=== PATIENT | male | born 1960 | race Caucasian/White ===

== ENCOUNTER 2019-03-30 10:19 | Outpatient (REF) | payer OTHER, SELFPAY ==
[2019-03-30 19:36] LABS: Anion Gap 11.9 mmol/L (3-11); BUN 25 mg/dL (7-18); CO2 26.1 mmol/L (21.0-32.0); Chloride 102 mmol/L (98-107); Glucose 120 mg/dL (70-100); Potassium 4.3 mmol/L (3.5-5.1); Sodium 140 mmol/L (136-145)
[2019-03-30 21:17] LABS: Hemoglobin A1C 5.6 % (4.5-6.2)
== END 2019-03-30 10:39 ==
LOC: NCHCN 10:19
PROVIDERS: PCP Internal Medicine; Visit Provider Physician Assistant Medical
DX: I10 Essential (primary) hypertension (principal)
CPT/HCPCS: 80048; 83036

== ENCOUNTER 2020-07-25 09:27 | Outpatient (REF) | payer BC, SELFPAY ==
[2020-07-26 01:01] LABS: ALT 52 U/L (16-63); AST 27 U/L (15-37); Albumin 4.1 g/dL (3.4-5.0); Alkaline Phosphatase 71 U/L (46-116); Anion Gap 12.4 mmol/L (3-11); BUN 19 mg/dL (7-18); Bilirubin, Total 0.8 mg/dL (0.2-1.0); CO2 25.6 mmol/L (21.0-32.0); CREATININE 0.66 mg/dL (0.70-1.30); Calculated LDL 111 mg/dL (<100); Chloride 105 mmol/L (98-107); Cholesterol 182 mg/dL (<200); Glucose 108 mg/dL (74-106); HDL Cholesterol 55 mg/dL (40-60); Potassium 4.2 mmol/L (3.5-5.1); Sodium 143 mmol/L (136-145); Total Protein 7.1 g/dL (6.4-8.2); Triglyceride 84 mg/dL (<150)
[2020-07-26 17:32] LABS: PSA, Screening 1.2 ng/mL (0.0-4.5)
== END 2020-07-25 09:47 ==
LOC: NCHCN 09:27
PROVIDERS: PCP Internal Medicine; Visit Provider Physician Assistant
DX: I10 Essential (primary) hypertension (principal); E78.5 Hyperlipidemia, unspecified; Z12.5 Encounter for screening for malignant neoplasm of prostate
CPT/HCPCS: 80053; 80061; 84153

== ENCOUNTER 2022-01-15 15:25 | Outpatient (REF) | payer BC, SELFPAY ==
[2022-01-15 20:23] LABS: Anion Gap 9.3 mmol/L (3-11); BUN 23 mg/dL (7-18); CO2 26.7 mmol/L (21.0-32.0); CREATININE 0.6 mg/dL (0.70-1.30); Calcium 9.2 mg/dL (8.5-10.1); Calculated LDL 112 mg/dL (<100); Chloride 101 mmol/L (98-107); Cholesterol 212 mg/dL (<200); Glucose 108 mg/dL (74-106); HDL Cholesterol 82 mg/dL (40-60); Potassium 4.3 mmol/L (3.5-5.1); Sodium 137 mmol/L (136-145); Triglyceride 91 mg/dL (<150)
== END 2022-01-15 15:26 | disposition home or self-care (01) ==
LOC: NCHCN 15:25
PROVIDERS: PCP Internal Medicine; Visit Provider Physician Assistant
DX: E78.5 Hyperlipidemia, unspecified (principal); I10 Essential (primary) hypertension
CPT/HCPCS: 80048; 80061

== ENCOUNTER 2023-01-21 12:46 | Outpatient (REF) | payer BC, SELFPAY ==
[2023-01-21 18:53] LABS: ALT 58 U/L (16-63); AST 27 U/L (15-37); Alkaline Phosphatase 64 U/L (46-116); Anion Gap 7.8 mmol/L (3-11); BUN 24 mg/dL (7-18); Bilirubin, Total 0.6 mg/dL (0.2-1.0); CO2 27.2 mmol/L (21.0-32.0); CREATININE 0.7 mg/dL (0.70-1.30); Calcium 9.2 mg/dL (8.5-10.1); Calculated LDL 100 mg/dL (<100); Chloride 104 mmol/L (98-107); Cholesterol 180 mg/dL (<200); Estimated GFR 102.89 (mL/min/1.73m2); Glucose 111 mg/dL (74-106); HDL Cholesterol 71 mg/dL (40-60); Potassium 4.2 mmol/L (3.5-5.1); Sodium 139 mmol/L (136-145); Total Protein 7.6 g/dL (6.4-8.2); Triglyceride 47 mg/dL (<150)
[2023-01-23 01:32] LABS: PSA, Screening 1.4 ng/mL (<=4.5)
== END 2023-01-21 12:47 | disposition home or self-care (01) ==
LOC: NCHCN 12:46
PROVIDERS: PCP Internal Medicine; Visit Provider Physician Assistant
DX: N40.0 Benign prostatic hyperplasia without lower urinary tract symptoms (principal); I10 Essential (primary) hypertension; E78.5 Hyperlipidemia, unspecified; R73.03 Prediabetes
CPT/HCPCS: 80053; 80061; 84153

== ENCOUNTER 2024-03-15 07:26 | Observation (INO) | payer BC, SELFPAY ==
[2024-03-15] VITALS (35 sets, daily range): BP systolic 88–172; BP diastolic 48–95; PULSE 62–114; RESP 9–22; TEMP 35.9–36.9; O2SAT 94–98; BMI 33.0
--- NOTE | 2024-03-15 07:44 | W.PM.HP.N ---
Date of service: 03/15/24 Time of Service: 07:45 Assessment and Plan Assessment and plan (1) Lower urinary tract symptoms (LUTS): Status: Acute Assessment and plan: He has failed maximal medical management so we will move ahead with surgical management. History of Present Illness History of Present Illness Chief Complaint: Lower urinary tract symptoms Narrative: This is a 63-year-old gentleman who has a long history of lower urinary tract symptoms including slowing of his urinary stream and double voiding. He has failed maximal medical therapy. He presents for transurethral resection of the prostate. He has never had complete urinary retention requiring a Callahan catheter. He has no prior history of urinary tract infections. He has no history of bleeding disorders or wound healing issues. Review of Systems Narrative: No fevers or chills No vision change or dysphasia No diabetes or thyroid No shortness of breath, cough or hemoptysis No chest pain or palpitations No nausea, vomiting, hepatitis, ulcers, jaundice, diarrhea or constipation No seizures, strokes or peripheral neuropathy No bleeding disorders or anemia No gout PFSH All Active Problems (Updated 03/15/24 @ 07:47 by Sukhdev Sheth MD) Lower urinary tract symptoms (LUTS) (Acute) BPH (benign prostatic hyperplasia) (Chronic) Hyperlipidemia (Acute) Hypertension (Chronic) Obesity (Chronic) Erectile dysfunction (Acute) History of alcohol abuse (Acute) Eczema (Acute) Cervical radiculopathy (Acute) Colonic polyp (Acute) Prediabetes (Acute) Social History Smoking/Tobacco Use Status: Former Tobacco Use Quit Date: 10/13/83 Smoking risk assessment performed?: Yes Alcohol Intake: current Alcohol Intake frequency: a few times a week Alcohol type: hard liquor Drug use: Never Substance use type: does not use Housing: house Additional Social history: [facility] Meds Allergies and Home Medications Allergies Allergy/AdvReac Type Severity Reaction Status Date / Time No Known Allergies Allergy Verified 03/15/24 07:55 Home Medications Medication Instructions Recorded Confirmed Type ibuprofen 800 mg tablet 800 mg PO Q8H 01/07/23 03/12/24 History lisinopril 40 mg tablet 40 mg PO DAILY 01/07/23 03/15/24 History tamsulosin 0.4 mg capsule 0.8 mg PO QHS 01/07/23 03/15/24 History atorvastatin 40 mg tablet 40 mg PO DAILY 06/10/23 03/15/24 History terazosin 1 mg capsule 2 mg PO DAILY 06/10/23 03/15/24 History finasteride 5 mg tablet 5 mg PO DAILY #90 tabs 06/11/23 03/15/24 Rx melatonin 10 mg capsule 40 mg PO HS PRN 03/15/24 03/15/24 History Exam Const General: cooperative Neck Neck: supple Resp Effort & Inspection: normal respiratory effort Auscultation: clear to auscultation bilaterally Cardio Rate: regular rate Rhythm: regular rhythm GI Inspection: obesity Palpation: soft Neuro General: patient alert, patient awake and patient oriented x3 Time Spent Time spent with Patient: <40 minutes Time was spent: other
[2024-03-15] MEDS: Lactated Ringers 1,000 ML 80 ML IV ×2 (07:52→11:20)
--- NOTE | 2024-03-15 08:17 | W.ANESPRE ---
General Info Date of Service Date Performed: 03/15/24 Height: 6 ft Weight: 110.4 kg Body Mass Index (BMI): 33.0 Surgical Procedure: Operation Date: 03/15/24 08:40 Proposed Procedure Side Surgeon p Cysto/Transurethral Resection Prostate/Vaporization of Prostate Sukhdev Sheth MD Meds Allergies and Home Medications Allergies Allergy/AdvReac Type Severity Reaction Status Date / Time No Known Allergies Allergy Verified 03/15/24 07:55 Home Medication Medication Instructions Recorded ibuprofen 800 mg tablet 800 mg PO Q8H 01/07/23 lisinopril 40 mg tablet 40 mg PO DAILY 01/07/23 tamsulosin 0.4 mg capsule 0.8 mg PO QHS 01/07/23 atorvastatin 40 mg tablet 40 mg PO DAILY 06/10/23 terazosin 1 mg capsule 2 mg PO DAILY 06/10/23 finasteride 5 mg tablet 5 mg PO DAILY #90 tabs 06/11/23 melatonin 10 mg capsule 40 mg PO HS PRN 03/15/24 Current Visit Medications: Current Medications Generic Name Dose Route Start Last Admin Trade Name Freq PRN Reason Stop Dose Admin Ringer's Solution 1,000 mls @ 80 mls/hr 03/15/24 06:00 03/15/24 07:52 IV 03/15/24 23:59 80 mls/hr INFUSION SUZE Administration Cefazolin Sodium/Dextrose 2 gm in 50 mls @ 100 mls/hr 03/15/24 06:00 Ancef Duplex IVPB 03/15/24 23:59 PREOP SUZE IV Miscellaneous Supplies 1 each 03/15/24 06:00 Iv Access IV 03/15/24 23:59 DIRECTED SUZE Sodium Chloride 0 ml 03/15/24 06:00 Normal Saline Flush 10 Ml Syr IV 03/15/24 23:59 PRN PRN Sodium Chloride 0 ml 03/15/24 06:00 Normal Saline 10 Ml Vial IJ 03/15/24 23:59 DIRECTED PRN Sterile Water 0 ml 03/15/24 06:00 Water,Injection,Sterile 10 Ml Vial IJ 03/15/24 23:59 DIRECTED PRN PFSH Active Problems Active Problems: Problem Status Onset Code Lower urinary tract symptoms (LUTS) R39.9 BPH (benign prostatic hyperplasia) N40.0 Hyperlipidemia E78.5 Hypertension I10 Obesity E66.9 Erectile dysfunction N52.9 History of alcohol abuse F10.11 Eczema L30.9 Cervical radiculopathy M54.12 Colonic polyp K63.5 Prediabetes R73.03 Tobacco Smoking/Tobacco Use Status: Former Tobacco Use Alcohol Alcohol Intake: current Alcohol intake frequency: a few times a week Alcohol type: hard liquor Substance Use Substance use: Never Substance use type: does not use Vital Signs and Lab Results Vital Signs Most Recent Vital Signs in EMR: Most Recent Vital Signs Temp Pulse Resp BP Pulse Ox 36.6 C 97 H 20 172/82 H 98 03/15/24 08:07 03/15/24 08:07 03/15/24 08:07 03/15/24 08:07 03/15/24 08:07 Lab Results Blood Type / Crossmatch: No Data to Display Complete Blood Count: No Data to Display Complete Metabolic Panel: No Data to Display Liver Function Panel: No Data to Display Coagulation Panel: No Data to Display Cardiac Panel: No Data to Display Arterial Blood Gas: No Data to Display Venous Blood Gas: No Data to Display Pancreas Panel: No Data to Display Thyroid Panel: No Data to Display Infectious Disease: No Data to Display Blood Cultures: No Data to Display Toxicology Panel: No Data to Display Anesthesia Assessment and Plan Anesthesia History Personal History: No History of General Anesthesia Family History: No Family History of Anesthesia Complications Exercise Tolerance Exercise Tolerance: Metabolic Equivalents>4 Pertinent Negatives Pertinent Negatives: No Major Pulmonary Symptoms or Complaints Cardiac & Pulmonary Exam Cardiac Exam: Normal S1/S2 Heart Sounds Pulmonary Exam: Clear Bilateral Breath Sounds Implantable Cardiac Device Does patient have a Pacemaker or an ICD?: No Airway Exam Known Difficult Airway: No Mallampati Class: 3 Mouth Opening: Normal (> 3cm) Thyromental Distance: Greater than 3 cm Neck Range of Motion: Full ROM Neck Circumference: Normal Teeth Condition: Normal Dentition ASA Classification ASA Score: ASA 2 Emergency Case?: No NPO Status NPO Status: NPO Clears >2 hours, Solids >8 hours Anesthesia Plan Resuscitation Status: Full Code Anesthesia Technique: General Anesthesia Airway Planned: Endotracheal Tube Monitors Used: Standard Monitors
[2024-03-15] MEDS: ceFAZolin 2 GM/50 ML BAG IVPB (09:16)
[2024-03-15] MEDS: Lidocaine 2% Jelly 11 ML SYR (09:28)
--- NOTE | 2024-03-15 10:11 | PROST_PTH ---
PATIENT: Jordy Lund LOC: U#:[id number] AGE/SX: 63/M ROOM: 215 RE03/15/[address]: Sukhdev Sheth MD : 1960 BED: A DIS: 03/16/2024 SPEC #: [id number] RECD: 03/15/24 13:02 STATUS: RANDOLPH REQ #: [id number] PONCHO: 03/15/24 10:[address]: Sukhdev Sheth DEPT: Surgical Specimen RECD BY: Jenna Chung ENTERED: 03/15/24 13:03 SP TYPE: PROST OTHR DR: Bhavesh Gaona Tissues: 1 - PROSTATE CURRETTINGS Procedures: GROSS AND MICRO LEVEL 4 Comments: [id number]
--- NOTE | 2024-03-15 10:29 | ROE_ITS ---
Date of service: 03/15/24 Time of Service: 10:29 Operative Note Operative Note DATE OF PROCEDURE: 03/15/24 PRE-OP DIAGNOSIS: Lower urinary tract symptoms PROCEDURE: Cystoscopy with TURP SURGEON: Sukhdev Sheth ANESTHESIA TYPE: Local By Surgeon and General LMA/ETT Refer to Anesthesia Record ESTIMATED BLOOD LOSS: 150 PATHOLOGY: other (prostate tissue) COMPLICATIONS: None Patient was transported to: PACU Patient's condition: stable Implants: 22 Fijian coude tipped irrigating catheter with 30 cc sterile water in balloon Indications: This is a 63-year-old gentleman who has a history of lower urinary tract symptoms. He has failed maximal medical therapy. He presented for transurethral resection of the prostate Findings: Trilobar prostatic enlargement with a prominent median lobe Procedure Description: The patient was given preoperative IV antibiotics and brought to the operating room on 03/15/2024. After successful induction of general anesthesia, he was placed in the dorsal lithotomy position. His genitalia was prepped with Betadine and the genitalia was draped. 2% Xylocaine jelly was then instilled into the urethra to act as a local anesthetic. A 24 Fijian resectoscope sheath was passed through the urethra into the bladder. We used a visual obturator to inspect the urethra and bladder. The pendulous, bulbar and membranous urethra appeared normal with no strictures. The prostatic urethra showed some lateral lobe enlargement but there was an elevated bladder neck and a rather prominent median lobe present. The bladder neck was entered and the bladder was inspected. The bladder was trabeculated with no papillary or nodular lesions present. Both ureteral orifices were identified. Using bipolar cautery and an netFactor resectoscope, we performed transurethral resection of the prostate. We initially took down the median lobe and followed up by resecting the lateral lobe and anterior tissue as well. All resected tissue was evacuated and sent to pathology for permanent section. The depth of the resection was down to the prostatic capsule and the resection extended out to the verumontanum. At the completion of the resection, we switched to a vaporization ball and cauterized and vaporized any remaining tissue in the prostatic fossa. At the completion of the procedure, no arterial bleeding was seen. The bladder was filled with irrigant. The resectoscope was removed. A 22 Fijian hematuria catheter was passed through the urethra into the bladder. The catheter balloon was inflated with 30 cc of sterile water. Continuous bladder irrigation with saline was then begun. The patient tolerated this procedure well with no complications. The estimated blood loss was 150 cc. He was taken to the recovery room in stable condition.
[2024-03-15] MEDS: Oxybutynin 5 MG TAB PO ×2 (10:56→17:53)
--- NOTE | 2024-03-15 10:58 | W.ANESPOSTOP ---
Postoperative Evaluation Date, Time and Location Date Performed: 03/15/24 Time Performed: 10:58 Patient Location: PACU Vital Signs Most Recent Imported Vital Signs: Most Recent Vital Signs Temp Pulse Resp BP Pulse Ox 36.4 C L 67 14 109/53 L 95 03/15/24 10:30 03/15/24 10:46 03/15/24 10:50 03/15/24 10:46 03/15/24 10:50 Pain Score Most Recent Pain Score: Most Recent Pain Score Pain Level 0 03/15/24 10:30 Assessment Mental Status: Awake (Alert & Oriented to Patient Baseline) Airway and Respiratory Function: Patent airway with normal (patient baseline) respiratory exam Cardiovascular Function: Hemodynamically Stable Hydration Status: Adequately Hydrated Nausea & Vomiting: No Nausea or Vomiting Pain: Pt. Denies Any Pain Peripheral Nerve Block: Patient did not receive a nerve block
[2024-03-15] MEDS: traMADol 50 MG TAB PO ×2 (13:20→20:07)
--- NOTE | 2024-03-15 13:49 | PHA.REVIEW2 ---
Pharmacy Admission Review Admission Clinical Review Admission Pharmacy Review: (Updated 03/15/24 @ 07:47 by Sukhdev Sheth MD) Lower urinary tract symptoms (LUTS) (Acute) No Known Allergies Allergy (Verified 03/15/24 07:55) Resuscitation Status Full Code Height 6 ft Weight 110.4 kg Pharmacy Admission Review Renal Dosing Medications needing adjustments: Reviewed (CrCl 94.5 mL/min) List of meds needing interventions: Current medications are okay Anticoagulation DVT Prophylaxis: Reviewed (SCDs) Relevant Labs Electrolytes, C-Reactive P, ESR: Reviewed Cardiac Review BP, HR, EF%: Reviewed (BP 104/55 and HR WNL) QTc Review QTc: Reviewed (No EKG on file) IV to PO Switch IV Medications: Reviewed (Ondansetron, ketorolac and cefazolin) Home Meds Home Med List reviewed: Reviewed Relevent Home Meds Not ordered & why?: Ibuprofen (PRN), lisinopril, Tamsulosin and terazosin Surgery this morning - reach out if patient still admitted tomorrow Current Meds Current Medication Order Review: Intervened Comments: Added IV admission order set Pharmacy Antibiotic Review Pharmacy Antibiotic Activity: Reviewed, no change Comments: POD #0, on cefazolin 1g q8h for total of 3 doses
[2024-03-15] MEDS: Lactated Ringers 1,000 ML 100 ML IV (15:41)
[2024-03-15] MEDS: Normal Saline Flush 10 ML SYR IVP ×2 (15:42→16:11)
[2024-03-15] MEDS: ceFAZolin 1 GM/50 ML BAG IVPB (16:00)
[2024-03-15] MEDS: Ketorolac 15 MG/ML VIAL IVP ×2 (16:11→21:20)
[2024-03-15] MEDS: Acetaminophen 325 MG TAB 650 MG PO ×2 (16:12→22:53)
[2024-03-15] MEDS: Lactated Ringers 500 ML IV (19:20)
[2024-03-15] MEDS: diazePAM 5 MG TAB PO (20:04)
[2024-03-15] MEDS: Docusate Sodium 100 MG CAP PO (20:05)
[2024-03-15] MEDS: Lactated Ringers 1,000 ML 125 ML IV (21:57)
[2024-03-16] VITALS (8 sets, daily range): BP systolic 90–128; BP diastolic 52–60; PULSE 80–98; RESP 18–20; TEMP 36.5–36.6; O2SAT 96–99
[2024-03-16] MEDS: ceFAZolin 1 GM/50 ML BAG IVPB (00:04)
[2024-03-16] MEDS: Melatonin 3 MG TAB 9 MG PO (01:04)
[2024-03-16] MEDS: Ketorolac 15 MG/ML VIAL IVP (03:25)
[2024-03-16] MEDS: Normal Saline Flush 10 ML SYR IVP (03:26)
[2024-03-16 06:24] LABS: Abs Immature Grans 0.22 10^3/uL (0.0-0.06); Basophils % 0.2 %; HCT 24.2 % (40.0-50.0); HGB 7.9 g/dL (13.5-17.5); Immature Grans % 1.2 %; Lymphocytes % 11.6 %; MCH 31.9 pg (27.0-33.0); MCHC 32.6 % (32.0-36.0); MCV 98 fL (80-95); MPV 9.4 fL (8.0-11.0); Monocytes % 10.5 %; Neutrophils % 76.5 %; Platelet Count 227 10^3/uL (130-400); RBC 2.48 10^6/uL (4.36-5.78); RDW-SD 45.9 fL; WBC 18.16 10^3/uL (4.4-10.8)
[2024-03-16 06:27] LABS: Absolute Basophil Count 0.04 10^3/uL (0.0-0.2); Absolute Lymphocyte Count 2.11 10^3/uL (1.2-3.4); Absolute Monocyte Count 1.91 10^3/uL (0.1-0.8); Absolute Neutrophil Count 13.89 10^3/uL (1.2-6.7)
[2024-03-16 06:39] LABS: Anion Gap 15.3 mmol/L (3-11); BUN 44 mg/dL (7-18); CO2 19.7 mmol/L (21.0-32.0); CREATININE 2.4 mg/dL (0.70-1.30); Calcium 7.6 mg/dL (8.5-10.1); Chloride 104 mmol/L (98-107); Estimated GFR 29.21 (mL/min/1.73m2); Glucose 181 mg/dL (74-106); Potassium 4.3 mmol/L (3.5-5.1); Sodium 139 mmol/L (136-145)
[2024-03-16 06:49] LABS: Diff Comment Diff Reviewed; RBC Morphology Normal
[2024-03-16] MEDS: Lactated Ringers 1,000 ML 125 ML IV (07:04)
--- NOTE | 2024-03-16 07:40 | PGE_ITS ---
Date of Service Date of service: 03/16/24 Time of Service: 07:40 Assessment and Plan Assessment and plan (1) Lower urinary tract symptoms (LUTS): Status: Acute (2) Postoperative anemia due to acute blood loss: Status: Acute Assessment and plan: We will plan on transfusing him 1 unit of packed red blood cells for his symptomatic low hemoglobin. The low hemoglobin is related to acute blood loss from the surgery. There is no evidence of continued bleeding at this time We will run his bladder irrigation for an additional hour this morning and then try discontinuing it. If the patient no longer needs his bladder irrigation, his blood pressure has improved after his transfusion and he is able to tolerate oral nutrition and medications, we may be appropriate to let him home later on today with his Callahan catheter in place. Subjective Subjective Interval history since last seen: He has been the light headed especially when getting up out of bed. He has had episodes of clot retention overnight and yesterday afternoon. He is comfortable at this time. Exam Narrative Exam Narrative: His vital signs are documented elsewhere in the chart. He is a bit tachycardic and his blood pressure is in the 80s systolically. He does not appear septic or toxic I hand irrigated his Callahan catheter and evacuated multiple old clots. The irrigation then became quite clear He is awake and alert His hemoglobin this morning is 7.9 ng/mL Objective Last Vital Signs Temp 36.5 C 03/16/24 07:31 Pulse 90 03/16/24 07:31 Resp 18 03/16/24 07:31 BP 90/54 L 03/16/24 07:31 Pulse Ox 97 03/16/24 07:31 Laboratory Results - last 24 hr 03/16/24 05:50 WBC 18.16 H RBC 2.48 L Hgb 7.9 L Hct 24.2 L MCV 98 H MCH 31.9 MCHC 32.6 RDW 13.0 Plt Count 227 MPV 9.4 Immature Gran % 1.2 Neutrophils % 76.5 Lymphocytes % 11.6 Monocytes % 10.5 Eosinophils % 0.0 Basophils % 0.2 Nucleated RBC % 0.0 Absolute Neutrophils 13.89 H Absolute Lymphocytes 2.11 Absolute Monocytes 1.91 H Absolute Eosinophils 0.00 Absolute Basophils 0.04 RBC Morphology Normal Sodium 139 Potassium 4.3 Chloride 104 Carbon Dioxide 19.7 L Anion Gap 15.3 H BUN 44 H Creatinine 2.4 H Est GFR (CKD-EPI 2020) 29.21 Glucose 181 H Calcium 7.6 L Time Spent with Patient Time Spent with Patient: 25-34 minutes Time was spent: preparing to see the patient(eg.review tests), ordering medications,tests, procedures, referring, communicating with other health career and guidance counselor and counseling the patient
[2024-03-16] MEDS: Docusate Sodium 100 MG CAP PO (08:36)
[2024-03-16] MEDS: Finasteride 5 MG TAB PO (08:36)
[2024-03-16] MEDS: Ciprofloxacin 500 MG TAB PO (08:36)
[2024-03-16] MEDS: Atorvastatin 40 MG TAB PO (08:36)
--- NOTE | 2024-03-16 09:35 | INITIAL_ITS ---
Date of service: 03/16/24 Time of Service: 09:35 Care Management Initial Assmt Initial Assessment Reason for Hospitalization: UTI Functional Status/Living Situation Patient Presentation: Jordy was sitting up in a chair visiting with his when CM met with him.He was polite and agreeable to conversation but was not overly talkative. Karl had a TURP yesterday and remained hospitalized overnight for a blood transfusion as he experienced blood loss anemia after surgery with hypotension. He informed CM that he is feeling much better since the transfusion and will be discharging home later today, Hedoes not anticipate the need for any new services. Town of Residence: [place], [place] Resides with: Spouse Significant Other/Family: Out of area (one daughter lives in [place]) Natural Supports: and 2 daughters Employment Status: Employed (works at [employer]) Instrumental Activities of Daily Living (ADLs): Independent Medications Medication Management: No Issues/Barriers identified Physical Functioning/Mobility Assistive Device: none Advance Directives Advance Directives: Do you have an Advance Directive: N 05/24/16 10:32 AD On File at [facility]: N 05/24/16 10:32 Date Asked 03/15/24 03/15/24 09:14 AD Date Reviewed COLST On File at [facility] COLST Date Scanned Code Status Resuscitation Status Full Code Portal Pt does not currently have a portal and education provided: No Insurance Coverage/Financial Issues Insurance: [employer] out of state ACO Member: No Care Team Visit Care Team Role Provider Type Bhavesh Gaona Primary Care Provider NON-[facility] STAFF P BRAIN Sheth MD Admit Provider [facility] STAFF PHYSICIAN Attending Provider Discharge Potential Discharge Needs: PCP F/U Appt and Other (urology) Anticipated Barriers to Discharge: None Identified Patient/Family Education Needs: Review discharge instructions, discuss Ask Me Three and Other (limitations, follow up plan) Transportation: Private vehicle Plan: Anticipate Jordy will be discharged home with no new services when medically cleared. He will follow up with Urology, his PCP and plan of care and transport with family. CM will continue to support discharge planning needs. PFSH All Active Problems (Updated 03/16/24 @ 07:42 by Sukhdev Sheth MD) Postoperative anemia due to acute blood loss (Acute) Lower urinary tract symptoms (LUTS) (Acute) BPH (benign prostatic hyperplasia) (Chronic) Hyperlipidemia (Acute) Hypertension (Chronic) Obesity (Chronic) Erectile dysfunction (Acute) History of alcohol abuse (Acute) Eczema (Acute) Cervical radiculopathy (Acute) Colonic polyp (Acute) Prediabetes (Acute) Social History Smoking/Tobacco Use Status: Former Tobacco Use Quit Date: 10/13/83 Smoking risk assessment performed?: Yes Alcohol Intake: current Alcohol Intake frequency: a few times a week Alcohol type: hard liquor Drug use: Never Substance use type: does not use Housing: house Additional Social history: [facility] SDOH(Care Management) Screening Will the Patient Participate in the Screening?: Yes Do you worry about having a steady place to live?: no Problems where you live: no known problems In the past 12 months, have you had to go without electric, gas, oil or water in your home?: no Have you or anyone in your house had to go without enough food to eat?: no Has lack of transportation kept you from medical appointments or from doing things needed for daily living?: no Has anyone in your support network made you feel unsafe for any reason?: no
--- NOTE | 2024-03-16 12:18 | W.PM.DSUDISC ---
Date of service: 03/16/24 Time of Service: 12:18 Discharge Plan Disposition Patient Disposition: Home Condition: Improving Discharge Details Reason For Visit: Lower Urinary Tract Symptoms Admit Date/Time: 03/15/24 07:26 Admit Provider: Sukhdev Sheth Attending Provider: Sukhdev Sheth Primary Care Provider: Bhavesh Gaona [facility] Course Hospital Course: The patient was admitted and taken to the operating room on 03/15/2024. He underwent transurethral resection of the prostate. He was then admitted to the medical surgical [place] for continuous bladder irrigation. The surgery itself was fairly uneventful, but while up on the hospital floor, his catheter stopped draining and we were unable to irrigate the catheter. It appeared that the catheter had been dislodged into the prostatic fossa. I was able to reach the position the catheter so that the bladder was adequately drained and continuous bladder irrigation was resumed. We hand irrigated multiple clots from the bladder after the catheter was repositioned. Overnight, he was a bit hypotensive and tachycardic. He was symptomatic and that he would get lightheaded or dizzy when he would get out of bed. On postoperative day #1 his hemoglobin was 7.9. Because of his symptoms, we gave him 1 unit of packed red blood cells and his blood pressure and heart rate responded appropriately. We were able to discontinue the bladder irrigation and his catheter remained patent. He will be discharged to home with his catheter in place. Home Meds and New Rx's Prescriptions: New ciprofloxacin HCl 500 mg Tablet 500 mg PO BID Qty: 10 0RF tramadol 50 mg Tablet 50 mg PO Q6H PRN PRNQty: 12 0RF oxybutynin chloride 5 mg Tablet 5 mg PO Q6H PRN PRN (Reason: bladder spasms) Qty: 12 0RF Continued atorvastatin 40 mg tablet 40 mg PO DAILY lisinopril 40 mg tablet 40 mg PO DAILY finasteride 5 mg tablet 5 mg PO DAILY Qty: 90 3RF melatonin 10 mg capsule 40 mg PO HS PRN Held ibuprofen 800 mg tablet 800 mg PO Q8H Hold Instructions: Resume on 03/29/24. hold until followup blood tests are completed Discontinued terazosin 1 mg capsule 2 mg PO DAILY tamsulosin 0.4 mg capsule 0.8 mg PO QHS Discharge Instructions Additional Instructions: Please instruct the patient in the use of a leg bag and a large drainage bag. Please send irrigation supplies home with the patient's . The patient should have 2 follow-up appointments. The first should be later this week for a voiding trial in our office. He should also plan to stop at the lab to have blood work drawn that morning. I we will have the orders placed for both a hemoglobin and a serum creatinine to be rechecked that day He should have a second follow-up appointment in 1 to 2 weeks so that we can assess his voiding and go over his surgical pathology Please do not do any lifting over 10 pounds until your follow-up visit. It is perfectly safe to walk and go up and down stairs. Some medications can cause constipation, so please plan to take stool softeners and use laxatives as needed. Drink plenty of fluid to keep the catheter output flowing. It is perfectly acceptable to shower while the catheter is in place. Activity:: No lifting over 10 pounds Equipment/Supplies:: Callahan catheter to leg bag Diet:: As Tolerated DS: Diagnosis Discharge Diagnosis (1) Lower urinary tract symptoms (LUTS): Status: Acute (2) Postoperative anemia due to acute blood loss: Status: Acute
--- NOTE | 2024-03-16 12:29 | DSE_ITS ---
Date of service: 03/16/24 Time of Service: 12:30 DS: Diagnosis Discharge Diagnosis (1) Lower urinary tract symptoms (LUTS): Status: Acute (2) Postoperative anemia due to acute blood loss: Status: Acute Discharge Plan Disposition Patient Disposition: Home Condition: Improving Discharge Details Reason For Visit: Lower Urinary Tract Symptoms Admit Date/Time: 03/15/24 07:26 Admit Provider: Sukhdev Sheth Attending Provider: Sukhdev Sheth Primary Care Provider: Bhavesh Gaona [facility] Course Hospital Course: The patient was admitted and taken to the operating room on 03/15/2024. He underwent transurethral resection of the prostate. He was then admitted to the medical surgical [place] for continuous bladder irrigation. The surgery itself was fairly uneventful, but while up on the hospital floor, his catheter stopped draining and we were unable to irrigate the catheter. It appeared that the catheter had been dislodged into the prostatic fossa. I was able to reach the position the catheter so that the bladder was adequately drained and continuous bladder irrigation was resumed. We hand irrigated multiple clots from the bladder after the catheter was repositioned. Overnight, he was a bit hypotensive and tachycardic. He was symptomatic and that he would get lightheaded or dizzy when he would get out of bed. On postoperative day #1 his hemoglobin was 7.9. Because of his symptoms, we gave him 1 unit of packed red blood cells and his blood pressure and heart rate responded appropriately. We were able to discontinue the bladder irrigation and his catheter remained patent. He will be discharged to home with his catheter in place. We will plan on checking his hemoglobin and his serum creatinine (which was elevated on postoperative day #1) when he comes back in for his catheter removal. Home Meds and New Rx's Prescriptions: New ciprofloxacin HCl 500 mg Tablet 500 mg PO BID Qty: 10 0RF tramadol 50 mg Tablet 50 mg PO Q6H PRN PRNQty: 12 0RF oxybutynin chloride 5 mg Tablet 5 mg PO Q6H PRN PRN (Reason: bladder spasms) Qty: 12 0RF Continued atorvastatin 40 mg tablet 40 mg PO DAILY lisinopril 40 mg tablet 40 mg PO DAILY finasteride 5 mg tablet 5 mg PO DAILY Qty: 90 3RF melatonin 10 mg capsule 40 mg PO HS PRN Held ibuprofen 800 mg tablet 800 mg PO Q8H Hold Instructions: Resume on 03/29/24. hold until followup blood tests are completed Discontinued terazosin 1 mg capsule 2 mg PO DAILY tamsulosin 0.4 mg capsule 0.8 mg PO QHS Discharge Instructions Additional Instructions: Please instruct the patient in the use of a leg bag and a large drainage bag. Please send irrigation supplies home with the patient's . The patient should have 2 follow-up appointments. The first should be later this week for a voiding trial in our office. He should also plan to stop at the lab to have blood work drawn that morning. I we will have the orders placed for both a hemoglobin and a serum creatinine to be rechecked that day He should have a second follow-up appointment in 1 to 2 weeks so that we can assess his voiding and go over his surgical pathology Please do not do any lifting over 10 pounds until your follow-up visit. It is perfectly safe to walk and go up and down stairs. Some medications can cause constipation, so please plan to take stool softeners and use laxatives as need ed. Drink plenty of fluid to keep the catheter output flowing. It is perfectly acceptable to shower while the catheter is in place. Activity:: No lifting over 10 pounds Equipment/Supplies:: Callahan catheter to leg bag Diet:: As Tolerated Discharge Orders Discharge Orders: Discharge Order (Routine); Ordered 03/16/24 Ordered By: Sukhdev Sheth DS: Summary Time Spent with Patient providing and/or coordinating discharge services: Less than 30 minutes Status at Discharge Functional status at discharge: independent ambulation Overall status at discharge: patient is progressing back to baseline Mental Status: mental status grossly normal Speech and Movement: speech and movement normal Mood: congruent mood Affect: normal affect Quality:SDOH Health Related Social Needs: No Data to Display Exam Narrative Exam Narrative: At the time of discharge, he looks well. His vital signs are documented elsewhere His chest wall motion is normal. He is not short of breath at rest. Cardiac exam shows a regular rate and rhythm His abdomen is soft with no guarding or rebound tenderness His Callahan catheter is draining red-tinged urine. I was able to hand irrigate the catheter no clots were obtained He is awake and alert Psych Mental Status: mental status grossly normal Speech and Movement: speech and movement normal Mood: congruent mood Affect: normal affect DS: Data Vitals/I&O Vitals and I&O: Vital Signs Temperature 36.5 C 03/16/24 12:00 Temperature Source Skin 03/16/24 07:31 Pulse 97 H 03/16/24 12:00 Pulse Rhythm Regular 03/16/24 08:50 Pulse 62 03/15/24 11:16 Respiratory Rate 18 03/16/24 12:00 Respiratory Effort Normal, Non-Labored 03/16/24 08:50 Respiratory Depth Normal 03/16/24 08:50 Respiratory Pattern Normal 03/16/24 08:50 Blood Pressure 128/55 L 03/16/24 12:00 Blood Pressure Mean 89 03/15/24 11:15 Blood Pressure Position Supine 03/15/24 08:00 Pulse Oximetry 96 03/16/24 12:00 Respiratory End-tidal CO2 37 03/15/24 11:44 Oxygen Delivery Method Room Air 03/16/24 12:00 Oxygen Flow Rate 0 03/16/24 12:00 Pain Level 4 03/16/24 03:25 Comment nurse notified. 03/15/24 15:29 Intake & Output 03/15/24 03/16/24 03/16/24 23:59 11:59 23:59 Intake Total 3329.167 / 4379.167 1200 / 1578 378 / 1578 Balance 3329.167 / 4229.167 1200 / 1578 378 / 1578 Weight 110.4 kg Intake: IV 2229.167 / 3279.167 1000 / 1000 Oral 1100 / 1100 200 / 200 Blood Product 378 / 378 Rbc Leuko Reduced Irradiated 378 / 378 Unit [id number] Other: Urine Color [place] Urine Appearance Clots Clear Comment manually irrigated. CBI stopped per Dr. Sheth Data Completed and Pending Labs on day of discharge: Labs from last 24 hours 03/16/24 03/16/24 03/16/24 07:55 07:40 05:50 WBC 18.16 H RBC 2.48 L Hgb 7.9 L Hct 24.2 L MCV 98 H MCH 31.9 MCHC 32.6 RDW 13.0 Plt Count 227 MPV 9.4 Immature Gran % 1.2 Neutrophils % 76.5 Lymphocytes % 11.6 Monocytes % 10.5 Eosinophils % 0.0 Basophils % 0.2 Nucleated RBC % 0.0 Absolute Neutrophils 13.89 H Absolute Lymphocytes 2.11 Absolute Monocytes 1.91 H Absolute Eosinophils 0.00 Absolute Basophils 0.04 RBC Morphology Normal Sodium 139 Potassium 4.3 Chloride 104 Carbon Dioxide 19.7 L Anion Gap 15.3 H BUN 44 H Creatinine 2.4 H Est GFR (CKD-EPI 2020) 29.21 Glucose 181 H Calcium 7.6 L ABO/Rh O Positive Cancelled Blood Type Recheck O Positive Antibody Screen NEGATIVE Cancelled Crossmatch See Detail PFSH All Active Problems (Updated 03/16/24 @ 07:42 by Sukhdev Sheth MD) Postoperative anemia due to acute blood loss (Acute) Lower urinary tract symptoms (LUTS) (Acute) BPH (benign prostatic hyperplasia) (Chronic) Hyperlipidemia (Acute) Hypertension (Chronic) Obesity (Chronic) Erectile dysfunction (Acute) History of alcohol abuse (Acute) Eczema (Acute) Cervical radiculopathy (Acute) Colonic polyp (Acute) Prediabetes (Acute) Social History Smoking/Tobacco Use Status: Former Tobacco Use Quit Date: 10/13/83 Smoking risk assessment performed?: Yes Alcohol Intake: current Alcohol Intake frequency: a few times a week Alcohol type: hard liquor Drug use: Never Substance use type: does not use Housing: house Additional Social history: [facility] Time Spent with Patient Time Spent with Patient: <45 minutes Time was spent: preparing to see the patient(eg.review tests), ordering medications,tests, procedures and counseling the patient
--- NOTE | 2024-03-16 13:30 | PDOC.CMDIS ---
Date of service: 03/16/24 Time of Service: 13:30 LACE Index Scoring Tool Questions: Length of Stay (in days): 1 Was the patient admitted via the E.D.?: No E.D. Visits: 0 Answers: Total Score: 1 Risk of Readmission: Low Risk Care Management Discharge Plan Reason for Hospitalization: TURP Discharge Plan: Jordy will be discharged home with no new services. He will follow up with Urology, his PCP and plan of care and transport with family. Patient/Family Education Needs: Review discharge instructions, discuss Ask Me Three and Other (limitations, follow up plan) SDOH Health Related Social Needs: No Data to Display
== END 2024-03-16 14:42 | disposition home or self-care (01) ==
LOC: PDS 09:14 → MS 13:25 → PDS 13:25
PROVIDERS: Admitting Provider Urology; PCP Internal Medicine; Visit Provider Urology
PROC: 0VT08ZZ Resection of Prostate, Via Natural or Artificial Opening Endoscopic (ICD-10-PCS; CPT 52601; principal; 2024-03-15 08:30)
DX: N40.1 Benign prostatic hyperplasia with lower urinary tract symptoms (principal); R33.8 Other retention of urine; D62 Acute posthemorrhagic anemia; N13.8 Other obstructive and reflux uropathy; Z79.899 Other long term (current) drug therapy; I10 Essential (primary) hypertension; E78.5 Hyperlipidemia, unspecified; E66.9 Obesity, unspecified; L30.9 Dermatitis, unspecified; R73.03 Prediabetes
CPT/HCPCS: 52601; 36415; 36430; 80048; 86850; 86900; 86901; 86920; 88305; 96361; 96365; 96366; 96375; 96376; 99222; 85025; G0378; J0131; J0690; J1100; J1171; J1885; J2001; J2250; J2371; J2405; J2704; J3010; P9016

== ENCOUNTER 2024-03-19 05:22 | Outpatient (CLI) | payer BC, SELFPAY ==
[2024-03-19 09:00] LABS: HCT 24.2 % (40.0-50.0)
[2024-03-19 09:22] LABS: CREATININE 0.9 mg/dL (0.70-1.30); Estimated GFR 94.78 (mL/min/1.73m2)
== END 2024-03-19 05:23 | disposition home or self-care (01) ==
LOC: LBO 05:23
PROVIDERS: PCP Internal Medicine; Visit Provider Urology
DX: D62 Acute posthemorrhagic anemia (principal); R39.9 Unspecified symptoms and signs involving the genitourinary system
CPT/HCPCS: 36415; 82565; 85014; 85018

== ENCOUNTER 2024-06-22 18:08 | Outpatient (REF) | payer BC, SELFPAY ==
[2024-06-22 19:36] LABS: ALT 111 U/L (16-63); AST 62 U/L (15-37); Albumin 4.3 g/dL (3.4-5.0); Alkaline Phosphatase 77 U/L (46-116); BUN 27 mg/dL (7-18); Bilirubin, Total 0.69 mg/dL (0.2-1.0); CREATININE 0.8 mg/dL (0.70-1.30); Calcium 9.4 mg/dL (8.5-10.1); Calculated LDL 95 mg/dL (<100); Chloride 102 mmol/L (98-107); Cholesterol 180 mg/dL (<200); Estimated GFR 97.61 (mL/min/1.73m2); Glucose 100 mg/dL (74-106); HDL Cholesterol 68 mg/dL (40-60); Potassium 4.1 mmol/L (3.5-5.1); Sodium 138 mmol/L (136-145); Total Protein 8.2 g/dL (6.4-8.2); Triglyceride 85 mg/dL (<150)
[2024-06-23 19:26] LABS: Hepatitis C Ab w Rflx HCV PCR Negative (Negative)
== END 2024-06-22 18:09 | disposition home or self-care (01) ==
LOC: NCHCN 18:08
PROVIDERS: PCP Internal Medicine; Visit Provider Physician Assistant
DX: Z00.00 Encounter for general adult medical examination without abnormal findings (principal); Z11.59 Encounter for screening for other viral diseases
CPT/HCPCS: 80053; 80061; 86803

== ENCOUNTER 2024-09-28 08:34 | Outpatient (REF) | payer BC, SELFPAY ==
[2024-09-28 20:11] LABS: Abs Immature Grans 0.03 10^3/uL (0.0-0.06); Absolute Basophil Count 0.11 10^3/uL (0.0-0.2); Absolute Eosinophil Count 0.23 10^3/uL (0.0-0.7); Absolute Lymphocyte Count 2.51 10^3/uL (1.2-3.4); Absolute Monocyte Count 0.74 10^3/uL (0.1-0.8); Basophils % 1.4 %; Eosinophils % 2.8 %; HCT 47.3 % (40.0-50.0); Immature Grans % 0.4 %; Lymphocytes % 30.9 %; MCH 27.9 pg (27.0-33.0); MCHC 31.7 % (32.0-36.0); MCV 88 fL (80-95); MPV 9.5 fL (8.0-11.0); Monocytes % 9.1 %; Neutrophils % 55.4 %; Platelet Count 323 10^3/uL (130-400); RBC 5.37 10^6/uL (4.36-5.78); RDW 15.1 % (11.8-14.1); RDW-SD 49.1 fL; WBC 8.12 10^3/uL (4.4-10.8)
[2024-09-28 20:37] LABS: ALT 41 U/L (16-63); AST 24 U/L (15-37); Albumin 3.9 g/dL (3.4-5.0); Alkaline Phosphatase 77 U/L (46-116); BUN 23 mg/dL (7-18); Bilirubin, Total 0.51 mg/dL (0.2-1.0); CREATININE 0.8 mg/dL (0.70-1.30); Calcium 9.2 mg/dL (8.5-10.1); Chloride 105 mmol/L (98-107); Estimated GFR 97.61 (mL/min/1.73m2); Glucose 115 mg/dL (74-106); Potassium 4.6 mmol/L (3.5-5.1); Sodium 139 mmol/L (136-145); Total Protein 7.5 g/dL (6.4-8.2)
== END 2024-09-28 08:35 | disposition home or self-care (01) ==
LOC: NCHCN 08:34
PROVIDERS: PCP Internal Medicine; Visit Provider Physician Assistant
DX: R74.01 Elevation of levels of liver transaminase levels (principal)
CPT/HCPCS: 80053; 85025

== ENCOUNTER 2025-08-11 17:10 | Outpatient (REF) | payer BC, SELFPAY ==
--- NOTE | 2025-08-11 15:50 | SKI_PTH ---
PATIENT: Jordy Lund LOC: [facility]#:[id number] AGE/SX: 65/M ROOM: RE08/11/[address]: Griselda Soria : 1960 BED: DIS: 08/11/2025 SPEC #: [id number] RECD: 08/11/25 18:29 STATUS: RANDOLPH REChiquis #: [id number] PONCHO: 08/11/25 15:[address]: Griselda Soria DEPT: Surgical Specimen RECD BY: Jenna Chung ENTERED: 08/11/25 18:31 SP TYPE: VANGIE ESPINAL DR: Bhavesh Gaona Tissues: 1 - SKIN BIOPSY(SHAVE/PUNCH) Procedures: SKIN LEVEL 4 Comments: [id number]
[2025-08-11 19:48] LABS: HCT 46.2 % (40.0-50.0); HGB 15.2 g/dL (13.5-17.5); MCH 29.6 pg (27.0-33.0); MCHC 32.9 % (32.0-36.0); MCV 90 fL (80-95); MPV 9.0 fL (8.0-11.0); Platelet Count 302 10^3/uL (130-400); RBC 5.13 10^6/uL (4.36-5.78); RDW 12.7 % (11.8-14.1); RDW-SD 42.0 fL; WBC 10.62 10^3/uL (4.4-10.8)
[2025-08-11 19:59] LABS: ALT 58 U/L (16-63); AST 31 U/L (15-37); Albumin 4.2 g/dL (3.4-5.0); Alkaline Phosphatase 80 U/L (46-116); Anion Gap 8.3 mmol/L (3-11); BUN 18 mg/dL (7-18); Bilirubin, Total 1.3 mg/dL (0.2-1.0); CO2 28.7 mmol/L (21.0-32.0); Calcium 9.6 mg/dL (8.5-10.1); Chloride 100 mmol/L (98-107); Cholesterol 187 mg/dL (<200); Glucose 91 mg/dL (74-106); HDL Cholesterol 62 mg/dL (>or=40); Potassium 4.8 mmol/L (3.5-5.1); Sodium 137 mmol/L (136-145); Total Protein 8.1 g/dL (6.4-8.2)
[2025-08-11 20:11] LABS: Hemoglobin A1C 5.7 % (<5.7)
== END 2025-08-11 17:11 | disposition home or self-care (01) ==
LOC: NCHCN 17:10
PROVIDERS: PCP Internal Medicine; Visit Provider Physician Assistant
DX: E78.5 Hyperlipidemia, unspecified (principal); R73.03 Prediabetes; I10 Essential (primary) hypertension; C43.59 Malignant melanoma of other part of trunk; D48.5 Neoplasm of uncertain behavior of skin
CPT/HCPCS: 80053; 80061; 85027; 83036; 88305